=== PATIENT | male | born 1960 | race Caucasian/White ===

== ENCOUNTER → 2016-05-03 | Outpatient (CLI) | payer OTHER ==
--- NOTE | 2016-05-03 15:38 | KCIC ---
PQRS STATEMENT One or more of the following individualized dose reduction techniques were utilized for this study: 1.Automated exposure control 2.Adjustment of the mA and/or kV according to patient size 3.Use of iterative reconstruction technique CT maxillofacial Indication: Reason For Study Reason: RECURRENT SINUSITIS / Spl. Instructions: / History: Congestion, drainage, previous sinus surgery Technique: multiple contiguous axial images were obtained through the facial bones. Coronal and sagittal reformations were created. Findings:Soft tissues are within normal limits. No facial fractures are identified. The paranasal sinuses and mastoid air cells are clear apart from a mucous retention cyst in the right maxillary sinus.. There been previous medial antrectomies. Ostiomeatal units are patent, as are the frontal ethmoid recesses. Temporomandibular joints are intact. The globes and orbits are within normal limits. Parapharyngeal soft tissues are within normal limits. Impression: Negative for CT evidence of acute sinusitis. Electronically signed by: Bo Eaton (May 03, 2016 15:37:21)
== END | disposition home or self-care (01) ==
LOC: KCIC CT 14:56
PROVIDERS: ATTEND Otolaryngology
DX: J32.9 Chronic sinusitis, unspecified (principal)
CPT/HCPCS: 70486

== ENCOUNTER → 2018-05-28 | Outpatient (CLI) | payer OTHER ==
--- NOTE | 2018-05-28 10:03 | RAD ---
PQRS Compliance Statement: One or more of the following individualized dose reduction techniques were utilized for this examination: 1. Automated exposure control 2. Adjustment of the mA and/or kV according to patient size 3. Use of iterative reconstruction technique CT chest without contrast May 28, 2018 INDICATION: Closed fracture of the right rib with cough. COMPARISON: None available TECHNIQUE: Multiple axial CT images of the chest were obtained without intravenous contrast. Coronal and sagittal reformats are provided. FINDINGS: The thyroid gland is normal in appearance. There are no pathologically enlarged axillary, mediastinal or hilar lymph nodes. Heart size within normal limits. There is no pericardial effusion. Thoracic aorta is normal in course and caliber. Calcified right hilar and mediastinal lymph nodes are identified suggestive of sequela prior granulomatous exposure. Thoracic esophagus is normal in appearance. Visualized portions of the upper abdomen appear normal. There is a 4 mm calcified granuloma in the right upper lobe. Mild bronchial wall thickening may be seen with bronchitis. There are no suspicious solid noncalcified nodules. There are no pleural effusions. No pulmonary vascular congestion or pneumothorax. Lungs are otherwise clear. No acutely displaced rib fracture is visualized. Sternum is intact. No suspicious osseous abnormality is identified. IMPRESSION: 1. No acutely displaced rib fracture is visualized. 2. Mild bronchial wall thickening as may be seen with bronchitis. Electronically signed by: Kimberly Ramos MD (05/28/2018 10:00 AM) [id number]
== END | disposition home or self-care (01) ==
LOC: CT 09:19
PROVIDERS: ATTEND Thoracic Surgery (Cardiothoracic Vascular Surgery)
DX: S22.31XD Fracture of one rib, right side, subsequent encounter for fracture with routine healing (principal); J84.10 Pulmonary fibrosis, unspecified; X58.XXXD Exposure to other specified factors, subsequent encounter
CPT/HCPCS: 71250

== ENCOUNTER → 2018-12-03 | Outpatient (CLI) | payer OTHER ==
--- NOTE | 2018-12-03 13:22 | KCIC ---
STUDY: MRI of the right knee without contrast INDICATION: Right knee pain. Prior surgery. COMPARISON: No prior cross-sectional imaging is available for review. TECHNIQUE: Multiplanar MR imaging of the right knee performed without the use of intravenous or intra-articular contrast. FINDINGS: Menisci: The lateral meniscus is intact. The medial meniscal body free edge is blunted. Fluid signal oblique undersurface defect at the medial meniscus posterior horn, image 8 series 7, as well as articular surface irregularity and heterogeneous meniscal signal at the posterior horn/root junction, image 11 series 7. The meniscus in these regions is diminutive in size. Cruciate ligaments: The PCL is intact. The ACL is disrupted as evidenced by flattening and heterogeneous internal signal. Collateral ligaments: No acute injury of the medial or lateral collateral ligaments. Tendons: Low grade partial tear of the distal quadriceps which is heterogeneous and thinned, image 19 series 7. The patellar tendon is intact. The additional tendons at the knee are intact. Cartilage: Patellofemoral: Partial thickness patellar chondrosis. No full-thickness chondral defect seen at the trochlea. Lateral compartment: Partial thickness chondral loss at the posterior weightbearing aspect of the lateral femoral condyle, image 19 series 7 and image 10 series 9. Matching chondral loss at the posterior aspect lateral tibial plateau. Medial compartment: High-grade chondrosis seen at the weightbearing medial femoral condyle and extending to involve the posterior nonweightbearing aspect. Matching chondral loss at the weightbearing to posterior medial tibial plateau. Bones: No acute fracture or aggressive marrow signal abnormality. Miscellaneous: Moderate volume knee joint effusion. Small Crum's cyst. IMPRESSION: 1. The ACL is disrupted. Oblique undersurface fluid signal defect at the medial meniscus posterior horn could represent a tear or the sequela of prior repair given history of surgery. Signal heterogeneity as well as articular surface irregularity at the posterior horn/root junction as well as medial meniscal body free edge blunting is also noted. Correlation with prior surgical report or prior imaging would be beneficial to determine the acuity of these findings. 2. Low-grade partial tear of the distal quadriceps. 3. 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 4. Moderate volume knee joint effusion and a small Crum's cyst. Electronically signed by: VILMA VALVERDE MD (12/03/2018 1:18 PM) [id number]
== END | disposition home or self-care (01) ==
LOC: KCIC MRI 08:20
PROVIDERS: ATTEND Orthopaedic Surgery
DX: S76.111A Strain of right quadriceps muscle, fascia and tendon, initial encounter (principal); M25.461 Effusion, right knee; M71.21 Synovial cyst of popliteal space [Baker], right knee; X58.XXXA Exposure to other specified factors, initial encounter; Y93.89 Activity, other specified; Y92.89 Other specified places as the place of occurrence of the external cause; Y99.8 Other external cause status
CPT/HCPCS: 73721